=== PATIENT | male | born 1985 | race Caucasian/White ===

== ENCOUNTER 2023-11-08 02:34 | Emergency (ER) | payer MEDICAID ==
[~2023-11-08] VITALS: Ht 170.2 cm; Wt 68.0 kg
[2023-11-08 02:37] VITALS: TEMP 98.7
[2023-11-08] MEDS: ALBUTEROL (0.083%) 2.5MG/3ML NEB HHN STA (03:15)
[2023-11-08 03:16] VITALS: PULSE 76; RESP 16; O2SAT 96
[2023-11-08] MEDS: IPRATROPIUM BROMIDE (0.02%) 0.5MG/2.5ML NEB HHN STA (03:16)
[2023-11-08 03:19] LABS: CHLORIDE 105 mEq/L (98-107); POTASSIUM 3.5 mEq/L (3.5-5.1); SODIUM 139 mEq/L (136-145)
[2023-11-08 03:20] LABS: CARBON DIOXIDE 29 mEq/L (21-32)
[2023-11-08 03:22] LABS: EOSINOPHILS % 7.2 % (0.0-5.0); HEMATOCRIT. 45.1 % (42.0-52.0); HEMOGLOBIN. 15.3 g/dL (14.0-18.0); LYMPHOCYTES % 29.6 % (20.0-50.0); MEAN CORPUSCULAR VOLUME 94.1 fL (80.0-94.0); MEAN PLATELET VOLUME 7.9 fl (7.4-10.4); MONOCYTES % 10.4 % (2.0-8.0); NEUTROPHILS % 51.8 % (40.0-76.0); PLATELET 264 x1000/uL (130-400); RED BLOOD CELL COUNT 4.79 mill/uL (4.7-6.1); RED CELL DISTRIBUTION WIDTH 13.5 % (11.6-14.6); WHITE BLOOD COUNT 9.3 x1000/uL (4.5-11.0)
[2023-11-08 03:25] LABS: CREATININE 0.8 mg/dL (0.6-1.3); GLUCOSE 132 mg/dL (70-105); UREA NITROGEN BLOOD 13 mg/dL (9-23)
[2023-11-08 03:30] LABS: TROPONIN I HIGH SENSITIVITY < 4 ng/L (3.0-53)
[2023-11-08] MEDS: METHYLPREDNISOLONE SOD SUCC 125MG/2ML (ACT-O-VIAL) IV STA (03:38)
[2023-11-08] MEDS ORDERED: P20 MT (04:39)
[2023-11-08] MEDS ORDERED: ALBU6.7H15 INH (04:39)
[2023-11-08 05:11] VITALS: BP 104/63; PULSE 87; RESP 18
== END 2023-11-08 05:37 | disposition home or self-care (01) ==
LOC: ER 02:34
DX: J44.1 Chronic obstructive pulmonary disease with (acute) exacerbation (principal); Z87.891 Personal history of nicotine dependence
CPT/HCPCS: 80048; 83880; 85025; 84484; 36415; 71045; 94640; 93005; 96374; 99285; J2919; Z7610 ×2